=== PATIENT | female | born 1990 | race Caucasian/White ===

== ENCOUNTER 2017-05-19 00:56 | Emergency (ER) | payer OTHER ==
[~2017-05-19] VITALS: Ht 165.1 cm; Wt 61.4 kg
[~2017-05-19 00:56] MED LIST: EFF375 PO; IBUP-1149 PO; XVIS2550 PO
[2017-05-19 01:01] VITALS: BP 138/94; PULSE 95; RESP 18; O2SAT 100
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
[2017-05-19 01:54] LABS: BASOPHILS % (AUTO) 0.9 % (0-3); EOSINOPHILS % (AUTO) 12.5 % (0-5); MONOCYTES % (AUTO) 6.7 % (4-12); Mean Corpuscular Hemoglobin 30.8 pg (27.0-35.0); Mean Corpuscular Volume 86.8 fL (81-100); NEUTROPHILS % (AUTO) 44.9 % (40-74); Platelet Count 289 bil/L (150-400)
[2017-05-19 03:21] VITALS: PULSE 74; RESP 14; O2SAT 97
== END 2017-05-19 03:20 | disposition home or self-care (01) ==
LOC: SED 00:56
DX: F15.10 Other stimulant abuse, uncomplicated (principal); F22 Delusional disorders; F41.9 Anxiety disorder, unspecified; R59.9 Enlarged lymph nodes, unspecified; I10 Essential (primary) hypertension; J45.909 Unspecified asthma, uncomplicated; F11.10 Opioid abuse, uncomplicated; F12.10 Cannabis abuse, uncomplicated; F17.200 Nicotine dependence, unspecified, uncomplicated; Z91.5 Personal history of self-harm; Z88.5 Allergy status to narcotic agent